=== PATIENT | female | born 1950 | race Caucasian/White ===

== ENCOUNTER → 2017-01-30 | Outpatient (CLI) | payer BC | LOC: MC.RAD 12:42 | DX: N63 Unspecified lump in breast (principal) ==

== ENCOUNTER → 2017-02-01 | Outpatient (CLI) | payer BC | LOC: MC.RAD 08:14 | DX: N63 Unspecified lump in breast (principal) ==

== ENCOUNTER → 2017-10-04 | Outpatient (CLI) | payer MEDICARE, OTHER | LOC: COL.RAD 11:03 | DX: M79.644 Pain in right finger(s) (principal) | CPT/HCPCS: J3301; Q9967 ==

== ENCOUNTER → 2018-01-15 | Outpatient (CLI) | payer MEDICARE, OTHER | LOC: COL.RAD 10:13 | DX: M25.541 Pain in joints of right hand (principal) | CPT/HCPCS: J3301; Q9967 ==

== ENCOUNTER 2019-07-25 09:00 | Outpatient (RCR) | payer MEDICARE, OTHER | END 2019-08-19 14:04 | disposition home or self-care (01) | LOC: WSPT 09:00 | DX: C50.412 Malignant neoplasm of upper-outer quadrant of left female breast (principal); M25.511 Pain in right shoulder ==

== ENCOUNTER 2020-05-15 13:10 | Outpatient (RCR) | payer MEDICARE, OTHER | END 2020-06-29 10:30 | disposition home or self-care (01) | LOC: WSPT 13:10 | DX: Z85.3 Personal history of malignant neoplasm of breast (principal); Z90.13 Acquired absence of bilateral breasts and nipples ==